=== PATIENT | male | born 1980 | race Caucasian/White ===

== ENCOUNTER 2020-06-27 07:51 | Emergency (ER) | payer SELFPAY ==
[~2020-06-27] VITALS: Wt 93.0 kg
[2020-06-27] MEDS ORDERED: CEFUROXIME AXE500 MG PO (09:24)
== END 2020-06-27 09:29 | disposition home or self-care (01) ==
LOC: ED 07:51
DX: H66.92 Otitis media, unspecified, left ear (principal)

== ENCOUNTER 2020-08-24 02:54 | Emergency (ER) | payer OTHER ==
[~2020-08-24] VITALS: Ht 180.3 cm; Wt 93.0 kg
[~2020-08-24 02:54] MED LIST: CEFUROXIME AXE500 MG PO
[2020-08-24] MEDS ORDERED: NAPROSYN500 MG PO (03:09)
== END 2020-08-24 03:59 | disposition home or self-care (01) ==
LOC: ED 02:54
DX: S93.401A Sprain of unspecified ligament of right ankle, initial encounter (principal); W22.8XXA Striking against or struck by other objects, initial encounter; Y93.89 Activity, other specified; Y92.89 Other specified places as the place of occurrence of the external cause; Y99.8 Other external cause status